=== PATIENT | male | born 1980 | race Caucasian/White ===

== ENCOUNTER → 2018-11-12 | Outpatient (CLI) | payer BC, SELFPAY ==
--- NOTE | 2018-11-12 15:30 | VAS_PTH ---
PATIENT: MINERVA ALEJANDRA LOC: [facility] U#:[id number] AGE/SX: 38/M ROOM: RE11/12/[address]: Dr. Shiva Thorpe MD : 1980 BED: DIS: 11/12/2018 SPEC #: [id number] RECD: 11/12/18 17:02 STATUS: BRYAN YUNG #: [id number] ALBERT: 11/12/18 15:[address]: Shiva Thorpe DEPT: SURGICAL PATHOLOGY RECD BY: Abiodun Medina Tissues: A - Vas deferens, NOS B - Vas deferens, NOS Procedures: Surgery Specimen Level II HEADER OPERATION: Bilateral partial vasectomy PRE-OP DIAGNOSIS: Sterilization TISSUE SUBMITTED: A - Right vas deferens, B - Left vas deferens MICROSCOPIC DIAGNOSIS A. Right vas deferens, segmental vasectomy: Complete segment of vas deferens with no pathologic change. B. Left vas deferens, segmental vasectomy: Complete segment of vas deferens with no pathologic change. AM:heena 11/16/18 MICROSCOPIC DESCRIPTION Slides are reviewed. GROSS DESCRIPTION A - Received is one container designated right vas deferens. The specimen consists of a tubular segment of kevin soft tissue measuring 1.6 cm in length and 0.2 cm in diameter. The entire specimen is submitted in one cassette. It will be serially sectioned at the time of embedding. B - Received is one container designated left vas deferens. The specimen consists of a tubular segment of kevin soft tissue measuring 0.7 cm in length and 0.2 cm in diameter. The entire specimen is submitted in one cassette. It will be serially sectioned at the time of embedding. / SJ:heena 11/15/18 TC:4 [facility]: [id number] x2
[2018-11-12 16:57] VITALS: BMI 23.7
== END | disposition home or self-care (01) ==
LOC: LABSPEC 11-15 06:28
PROVIDERS: Referring Provider Surgery; Visit Provider Surgery
DX: Z30.2 Encounter for sterilization (principal)
CPT/HCPCS: 88302